=== PATIENT | female | born 1955 | race Caucasian/White ===

== ENCOUNTER 2017-06-18 06:28 | Day surgery (SDC) | payer OTHER ==
[2017-06-17 17:57] VITALS: BMI 27.1
[2017-06-18] MEDS ORDERED: VASOPRESSIN 20 UNITS/ML VIAL IV ONE (07:29)
--- NOTE | 2017-06-18 07:58 | HP ---
History & Physical Update - History History: No Change - Physical Physical: No Change - Assessment Assessment: No Change - Plan Plan: No Change
[2017-06-18] MEDS ORDERED: ACETAMINOPHEN 1000 MG/100 ML VIAL (NON FORMULARY) IVPB ONE ×2 (07:59→09:44)
[2017-06-18] MEDS ORDERED: DEXTROSE 5%-0.45% SALINE 1,000 ML IV SCH (08:00)
[2017-06-18] MEDS ORDERED: IBUPROFEN 800 MG/8 ML IJ IVPB SCH (08:00)
[2017-06-18] MEDS ORDERED: MIDAZOLAM HCL 2 MG/2 ML SINGLE DOSE VIAL ONE (08:13)
[2017-06-18] MEDS ORDERED: PROPOFOL 20 ML ONE (08:15)
[2017-06-18] MEDS ORDERED: SUCCINYLCHOLINE CHLORIDE 200 MG/10 ML VIAL ONE (08:17)
[2017-06-18] MEDS ORDERED: ceFAZolin SODIUM 1 GM VIAL IVPB ONE (08:20)
[2017-06-18] MEDS ORDERED: ONDANSETRON 4 MG/2 ML VIAL IVPUSH PRN (09:25)
[2017-06-18] MEDS ORDERED: LACTATED RINGERS SOLUTION 1,000 ML IV SCH (09:30)
[2017-06-18] MEDS ORDERED: IBUPROFEN 800 MG/8 ML IJ IVPB ONE ×2 (09:34→09:51)
[2017-06-18] MEDS ORDERED: ACETAMINOPHEN INJECTION 100 ML IVPB ONE (09:34)
[2017-06-18] MEDS ORDERED: ONDANSETRON 4 MG/2 ML VIAL ONE (09:59)
[2017-06-18] MEDS ORDERED: ONDANSETRON 4 MG/2 ML VIAL IVPUSH ONE (10:02)
[2017-06-18 10:52] VITALS: TEMP 98.4
[2017-06-18 14:19] VITALS: BP 112/55; PULSE 62
--- NOTE | 2017-06-19 11:00 | OP ---
DATE OF OPERATION: 06/18/2017 SURGEON: Sea Grullon MD PREOPERATIVE DIAGNOSES: Cystocele and stress urinary incontinence with hypermobile urethra. POSTOPERATIVE DIAGNOSES: Cystocele and stress urinary incontinence with hypermobile urethra. PROCEDURE: Anterior cystocele repair, a suburethral sling placement, and cystoscopy. ANESTHESIA: General. ESTIMATED BLOOD LOSS: 25 mL DRAINS: A Pizarro catheter. FINDINGS: A grade 2 cystocele and hypermobile urethra. PREOPERATIVE INDICATIONS: The patient is a 61-year-old female who has stress urinary incontinence as well as bladder prolapse. She comes to the OR today for cystocele repair and a suburethral sling placement. OPERATION: The patient was brought to the OR, placed on the table in the supine position, given general anesthesia and IV antibiotics, and placed in the modified lithotomy position. The groin was prepped and draped sterilely. A timeout was performed, and IV antibiotics were given. A Pizarro catheter was placed. The area of the vagina mucosa over the bladder was marked and injected with Pitressin under the vaginal mucosa. An incision was made in the midline from the area approximating the bladder neck, down towards the cervix. The vaginal mucosa was then dissected sharply off of the perivesical tissues in a lateral fashion. Excess vaginal mucosa was excised. The cystocele was repaired in 3 layers. First, a 3-0 Vicryl was used to repair the central defect of the bladder. Then, 2-0 Vicryl sutures were used to bring the lateral tissues together to affect the raising of the bladder as well. At that point, the bladder repair appeared to be ideal. Cystoscopy was performed. Both UOs were seen with clear efflux. No sutures were seen in the bladder. The vaginal mucosa was then brought together as well to affect the closure with 2-0 Vicryl suture. The mid portion of the urethra was then identified and marked. Pitressin was injected into the vaginal mucosa at this point and laterally. An incision was made over the middle third of the urethra. The vaginal mucosa was sharply dissected off the periurethral tissues in a lateral fashion. Bladder was emptied. The mini-sling trocars were then used, the first on the patient's right. The trocar was passed through the incision and through the track formed towards the obturator canal. Under fingertip control, the trocar was rotated until the mini sling implanted. A similar procedure was then done on the left side. No evidence of button holing was seen. The urethral sling lied flat against the mid urethra without tension. A cystoscopy was performed again, revealing no evidence of any perforation. The excess tightening suture was excised, and the vaginal mucosa was closed using 2-0 Vicryl suture. Pizarro catheter was left in place as well as vaginal packing. The patient was woken up. Harvinder [id number]
--- NOTE | 2017-06-19 16:02 | PATH ---
Surgical Pathology Report Patient Name: OZ GRUBBS [facility]. Rec. #: [id number] /Age/Gender: 1955 (Age: 61) / F Account: [id number] Location: [facility] SURGICAL Taken: 06/18/2017 Received: 06/18/2017 Reported: 06/19/2017 Physicians: Sea Grullon M.D. Specimen(s) Received VAGINAL MUCOSA Clinical History Stress incontinence, cystocele Final Diagnosis VAGINAL MUCOSA, EXCISION: VAGINAL SQUAMOUS MUCOSA WITHOUT SIGNIFICANT PATHOLOGIC FINDINGS AND DENSE FIBROUS TISSUE. Electronically Signed Emi Webb M.D. Gross Description Received in formalin labeled "vaginal mucosa," are 2 willis, unoriented portions of mucosal tissue measuring 2.2 x 1.3 x 0.3 cm and 2.8 x 1.1 x 0.3 cm. No lesions are identified. Sheet Layer sections are submitted in one cassette. /06/18/2017 saudi06/18/2017
== END 2017-06-18 14:00 | disposition home or self-care (01) ==
LOC: JASU-SURG 06:28
PROVIDERS: ATTEND Urology
PROC: 0TJB8ZZ Inspection of Bladder, Via Natural or Artificial Opening Endoscopic (ICD-10-PCS; 2017-06-18)
PROC: 0TSD0ZZ Reposition Urethra, Open Approach (ICD-10-PCS; 2017-06-18)
PROC: 0JQC0ZZ Repair Pelvic Region Subcutaneous Tissue and Fascia, Open Approach (ICD-10-PCS; principal; 2017-06-18 08:00)
PROC: 0TSD0ZZ Reposition Urethra, Open Approach (ICD-10-PCS; 2017-06-18 08:00)
DX: N39.3 Stress incontinence (female) (male) (principal); N81.10 Cystocele, unspecified; N36.41 Hypermobility of urethra
CPT/HCPCS: 88302-TC; 94760; J0131

== ENCOUNTER 2017-07-03 19:20 | Emergency (ER) | payer OTHER ==
--- NOTE | 2017-07-03 19:33 | PDOC ---
Rapid Medical Evaluation Time Seen by Provider: 07/03/17 19:31 Medical Evaluation: Allergies Allergy/AdvReac Type Severity Reaction Status Date / Time oxycodone AdvReac Severe Verified 06/18/17 07:28 07/03/17 19:31 I have performed a brief in-person evaluation of this patient. The patient presents with a chief complaint of vaginal bleeding since this afternoon Reports lower abdominal discomfort, with dizziness and feeling shaky. Pertinent physical exam findings: unlabored breathing non tender abdomen I have ordered the following: urinalysis, cbc, type and hold The patient will proceed to the ED for further evaluation. Discharge Disposition - Referrals Referrals: Sea Grullon MD [Primary Care Provider] - - Patient Instructions - Post Discharge Activity
[2017-07-03 19:35] VITALS: BP 157/80; PULSE 73; TEMP 98.6; BMI 27.1
--- NOTE | 2017-07-03 20:21 | PDOC ---
History of Present Illness - General Chief Complaint: Vaginal Bleeding Stated Complaint: VAGINAL BLEED Time Seen by Provider: 07/03/17 19:31 - History of Present Illness Initial Comments: 07/03/17 20:20 61-year-old female complaining of vaginal bleeding with clots since 3 PM today patient reports that she has been spotting for the last 3 days. Patient on had bladder prolapse surgery by urology. Patient had a follow-up appointment with urology 2 days ago. At that time patient was noted to have some vaginal spotting, patient was advised to wear a tampon to locate the site of bleeding. Patient has been soaking tampons and pads since 3 PM today denies nausea vomiting diarrhea, fever, chills, urinary symptoms, rectal bleeding. Patient reports that she is able to urinate well. patient completed 10 days of cephalexin post op. 07/03/17 20:30 07/03/17 20:32 Past History - Past Medical History Allergies/Adverse Reactions: Allergies Allergy/AdvReac Type Severity Reaction Status Date / Time oxycodone AdvReac Severe Verified 07/03/17 19:32 Home Medications: Ambulatory Orders Fexofenadine/Pseudoephedrine [Andra-D 24 Hour Tablet] 1 tab PO HS 06/17/17 Ibuprofen 800 mg PO PRN PRN 06/17/17 Cefuroxime Axetil [Ceftin -] 500 mg PO Q12H #20 tablet 06/18/17 Tramadol HCl 50 mg PO QID PRN #10 tablet MDD 4 06/18/17 Sulfamethoxazole/Trimethoprim [Bactrim Ds -] 1 tab PO BID #10 tablet 07/04/17 Anemia: No Asthma: No Cancer: No Cardiac Disorders: No CVA: No COPD: No CHF: No Dementia: No Diabetes: No GI Disorders: No Disorders: No HTN: No Hypercholesterolemia: No Liver Disease: No Seizures: No Thyroid Disease: No - Surgical History Cardiac Surgery: No Lung Surgery: No Neurologic Surgery: No Orthopedic Surgery: Yes (RIGHT ROTATOR CUFF REPAIR 04/2015) - Reproductive History Is Patient Now?: No - Suicide/Smoking/Psychosocial Hx Smoking History: Never smoked Hx Alcohol Use: Yes (SOCIALLY) Drug/Substance Use Hx: No Substance Use Type: None Hx Substance Use Treatment: No Review of Systems - Review of Systems Able to Perform ROS?: Yes Is the patient limited Ukrainian proficient: No ABD/GI: Yes: Other (vaginal bleeding ). No: Symptoms Reported, See HPI, Abdominal Distended, Abd. Pain w/ defecation, Blood Streaked Bowels, Constipated , Diarrhea, Difficulty Swallowing, Nausea, Poor Appetite, Poor Fluid Intake, Rectal Bleeding, Vomiting, Indigestion, Abdominal cramping, Tarry Stools : No: Symptoms Reported, See HPI, Burning, Dysuria, Discharge, Frequency, Flank Pain, Hematuria, Incontinence, Pain, Urgency, Testicular Mass, Testicular Swelling, Lesions, Testicular Pain, Other *Physical Exam - Vital Signs Last Vital Signs Temp Pulse Resp BP Pulse Ox 98.6 F 73 18 157/80 98 07/03/17 19:32 07/03/17 19:32 07/03/17 19:32 07/03/17 19:32 07/03/17 19:32 - Physical Exam General Appearance: Yes: Appropriately Dressed Respiratory/Chest: positive: Lungs Clear, Normal Breath Sounds Female Pelvic Exam: positive: normal external exam, other (small amount of bleeding noted in vaginal vault. stiches intact, ) Gastrointestinal/Abdominal: positive: Normal Bowel Sounds, Tender (suprapubic tenderness), Soft Musculoskeletal: positive: Normal Inspection Extremity: positive: Normal Capillary Refill, Normal Inspection, Normal Range of Motion Integumentary: positive: Normal Color, Dry, Warm Neurologic: positive: Fully Oriented, Alert, Normal Mood/Affect ED Treatment Course - LABORATORY CBC & Chemistry Diagram: 07/03/17 19:48 07/03/17 21:22 - RADIOLOGY Radiology Studies Ordered: Category Date Time Status TRANSVAGINAL ULTRASOUND US [US] Stat Ultrasound 07/03/17 20:06 Ordered Progress Note - Progress Note Progress Note: vaginal bleeding, UTI P: UA, UCX Pelvic CT US Medical Decision Making - Medical Decision Making 07/03/17 11:13 Dr. billingsley covering for Dr. Bry mehta. recommends doing CT Cystogram. 07/04/17 01:15 CT cystogram negative for fistula. US; atrophic endometrium. p patient to follow up with urology and gynecology. 07/04/17 01:19 *DC/Admit/Observation/Transfer Diagnosis at time of Disposition: Vaginal bleeding, abnormal UTI (urinary tract infection) Qualifiers: Urinary tract infection type: acute cystitis Hematuria presence: with hematuria Qualified Code(s): N30.01 - Acute cystitis with hematuria - Discharge Dispostion Disposition: HOME Condition at time of disposition: Improved - Prescriptions Prescriptions: Sulfamethoxazole/Trimethoprim [Bactrim Ds -] 1 tab PO BID #10 tablet - Referrals Referrals: Sea Grullon MD [Primary Care Provider] - Call tomorrow Christiano Fernandez MD [Staff Physician] - Call tomorrow - Patient Instructions Printed Discharge Instructions: Urinary Tract Infection Additional Instructions: please follow up with your urologist as soon as possible. take bactrim as prescribed. return to the ER if you soaking 2 pads/ hour, fever/ chills, worsening symptoms. - Post Discharge Activity Forms/Work/School Notes: Back to Work
[2017-07-03 20:24] LABS: BASO % 0.4 % (0-2.0); EOS % 6.4 % (0-4.5); HEMATOCRIT 42.2 % (32.4-45.2); HEMOGLOBIN 13.8 GM/dL (10.7-15.3); LYMPH % 33.3 % (8-40); MCH 29.6 pg (25.7-33.7); MCHC 32.7 g/dl (32.0-36.0); MEAN CELL VOLUME 90.5 fl (80-96); MEAN PLT VOLUME 8.9 fl (7.5-11.1); MONO % 5.1 % (3.8-10.2); NEUT % 54.8 % (42.8-82.8); PLATELET COUNT 269 K/MM3 (134-434); RBC 4.67 M/mm3 (3.60-5.2)
[2017-07-03 20:31] LABS: URINE APPEARANCE CLEAR; URINE BILIRUBIN NEGATIVE (<2.0 mg/dL); URINE COLOR AMBER; URINE GLUCOSE (UA) NEGATIVE (NEGATIVE); URINE KETONE NEGATIVE (NEGATIVE); URINE NITRITE NEGATIVE (NEGATIVE); URINE PROTEIN NEGATIVE (NEGATIVE); URINE UROBILINOGEN NEGATIVE mg/dL (0.2-1.0)
[2017-07-03 20:35] LABS: URINE LEUK ESTERASE 2+ (NEGATIVE)
[2017-07-03 20:36] LABS: EPI CELLS RARE /HPF (FEW)
[2017-07-03 22:08] LABS: BLOOD UREA NITROGEN 17 mg/dL (7-18); CHLORIDE 105 mmol/L (98-107); CO2 30 mmol/L (21-32); CREATININE 0.6 mg/dL (0.55-1.02); GLUCOSE,RANDOM 97 mg/dL (74-106); POTASSIUM 4.3 mmol/L (3.5-5.1); SODIUM 140 mmol/L (136-145)
[2017-07-03 22:09] LABS: ANION GAP 5 (8-16)
== END 2017-07-04 02:08 | disposition home or self-care (01) ==
LOC: JER 19:20
DX: N30.01 Acute cystitis with hematuria (principal); Z98.890 Other specified postprocedural states
CPT/HCPCS: 36415; 72194-TC; 76830-TC; 80048; 81003; 81015; 85025; 86850; 86900; 86901; 87086; 99283-25